=== PATIENT | male | born 1995 | race African-American/Black ===

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

== ENCOUNTER 2017-07-10 16:55 | Emergency (ER) | payer MEDICAID, OTHER ==
[~2017-07-10] VITALS: Ht 182.9 cm; Wt 81.6 kg
[~2017-07-10 16:55] MED LIST changes: +CYCLOBENZAPRINE10 MG ORAL; +IBUPROFEN600 MG ORAL
[2017-07-10 17:18] VITALS: BP 105/67
--- NOTE | 2017-07-10 17:27 | Emergency Room Report ---
History of Present Illness General Chief Complaint: Pain Source: Patient Present Illness HPI Pt. presents to the ED c/o dry cough, wheezing and chest congestion x 2 days. Denies fevers or chills. Reports hx of asthma and is a smoker. He is out of his inhaler. Denies sore throat, ear pain, high fevers, lethargy, neck pain/ stiffness, irritability, photophobia dehydration, N/V/D. Denies cardiac hx. Denies Cp, Palpitations, LOC, AMS, seizures, paresthesias, or changes in Hearing or vision, no Sudden severe MARK. Allergies: Coded Allergies: No Known Allergies (Unverified , 11/25/15) Patient History Past Medical History: see triage record Past Surgical History: none Pertinent Family History: none Reviewed Nursing Documentation: PMH: Agreed, PSxH: Agreed Nursing Documentation-PMH Past Medical History: No History, Except For Hx Asthma: Yes Review of Systems All Other Systems: negative except mentioned in HPI Physical Exam Vital Signs Date Time Temp Pulse Resp B/P (MAP) Pulse Ox O2 Delivery O2 Flow Rate FiO2 07/10/17 17:08 98.3 75 20 105/67 96 Room Air 98.2 Sp02 EP Interpretation: reviewed, normal General Appearance: no apparent distress, alert, GCS 15, non-toxic Head: normocephalic, atraumatic Eyes: bilateral eye normal inspection, bilateral eye PERRL ENT: hearing grossly normal, normal voice Neck: full range of motion Respiratory: chest non-tender, lungs clear, normal breath sounds, no respiratory distress, no accessory muscle use, no wheezing, speaking full sentences Cardiovascular #1: regular rate, rhythm Musculoskeletal: back normal, gait/station normal, normal range of motion, non- tender Neurologic: alert, oriented x3, responsive, motor strength/tone normal, sensory intact, speech normal, grossly normal Psychiatric: judgement/insight normal Skin: normal color, no rash, warm/dry, well hydrated Lymphatic: no adenopathy Medical Decision Making PA Attestation Dr. Gaytan is my supervising physician whom pt. management has been discussed with. Diagnostic Impression: Primary Impression: Bronchitis ER Course Pt. presents to the ED c/o dry cough, wheezing and chest congestion x 2 days. Denies fevers or chills. Reports hx of asthma and is a smoker. He is out of his inhaler. Denies sore throat, ear pain, high fevers, lethargy, neck pain/ stiffness, irritability, photophobia dehydration, N/V/D. Denies cardiac hx. Denies Cp, Palpitations, LOC, AMS, seizures, paresthesias, or changes in Hearing or vision, no Sudden severe MARK. Ddx considered but are not limited to URI, pneumonia, PE, strep pharyngitis, meningitis. Vital signs: Pt.is afebrile VS are WNL H&PE are most consistent with bronchitis- no evidence of bacterial infection at this time, no evidence of airway compromise or significant asthma exacerbation. ORDERS: none required at this time, the diagnosis is clinical ED INTERVENTIONS: None required at this time. DISCHARGE: At this time pt. is stable for d/c to home. Will provide printed patient care instructions, and any necessary prescriptions. Care plan and follow up instructions have been discussed with the patient prior to discharge. Last Vital Signs Date Time Temp Pulse Resp B/P (MAP) Pulse Ox O2 Delivery O2 Flow Rate FiO2 07/10/17 17:18 98.2 77 20 105/67 97 Room Air 98.2 Disposition: HOME, SELF-CARE Condition: Stable Scripts Albuterol Sulfate* (ALBUTEROL SULFATE MDI*) 8.5 Gm Hfa.aer.ad 2 PUFF INH Q4H, #1 INH 0 Refills Prov: Pooja Haywood 07/10/17 Guaifenesin (Guaifenesin) 1,200 Mg Tab.er.12h 1200 MG PO BID, #20 TAB Prov: Pooja Haywood 07/10/17 Codeine/Promethazine Hcl* (PROMETHAZINE-CODEINE SYRUP*) 118 Ml Syrup 5 ML ORAL Q6H Y for For Cough, #120 ML 0 Refills Prov: Pooja Haywood 07/10/17 Departure Forms: Return to Work Return to Work Date: Jul 13, 2017 Work Restrictions: None Return to Full Activity: Jul 13, 2017 Patient Instructions: Acute Bronchitis, [id number] Additional Instructions: Take medications as directed. Follow up with a Primary Care Provider in 3-5 days, even if your symptoms have resolved. --Please review list of primary care clinics, if you do not already have a primary care provider Return sooner to ED if new symptoms occur, or current symptoms become worse. Do not drink alcohol, drive, or operate heavy machinery while taking Cough Syrup as this may cause drowsiness. - Please note that this Emergency Department Report was dictated using [employer] blocking operator technology software, occasionally this can lead to erroneous entry secondary to interpretation by the dictation equipment. Pooja Haywood Jul 10, 2017 17:27
[2017-07-10] MEDS ORDERED: GUAIFENESIN1200 MG PO (17:28)
[2017-07-10] MEDS ORDERED: ALBUTEROL SULF8.5 GM INH (17:28)
[2017-07-10] MEDS ORDERED: PROMETHAZINE-C118 M1 ORAL (17:28)
[2017-07-10 17:38] VITALS: BP 105/67
== END 2017-07-10 17:38 | disposition home or self-care (01) ==
LOC: EMR 17:33
DX: J45.909 Unspecified asthma, uncomplicated (principal)
CPT/HCPCS: 99284

== ENCOUNTER 2018-12-23 08:52 | Emergency (ER) | payer MEDICAID ==
[~2018-12-23] VITALS: Ht 182.9 cm; Wt 82.6 kg
[~2018-12-23 08:52] MED LIST changes: +GUAIFENESIN1200 MG PO; +PROMETHAZINE-C118 M1 ORAL
[2018-12-23 09:09] VITALS: BP 110/70
--- NOTE | 2018-12-23 09:10 | Emergency Room Report ---
History of Present Illness General Chief Complaint: Upper Respiratory Illness Source: Patient Present Illness HPI The patient presents with 2 weeks of upper respiratory symptoms. Last week he had problems with wheezing and cough. Use of his inhalers helped this. This is somewhat improved at this time. He had a sore throat but this is improved. He feels somewhat chills at night but denies having fevers. He has a mildly productive cough with yellow and occasionally green phlegm without any blood. He denies chest pain. His mother told him he needed to be evaluated. He has been taking [id number] medication. This is helped somewhat. He does smoke THC. No palpitations, nausea, vomiting, diarrhea, dysuria, abdominal pain, joint pain , rashes, depression, anxiety, visual changes, headache. Allergies: Coded Allergies: No Known Allergies (Unverified , 11/25/15) Patient History Past Medical History: see triage record Social History: Reports: drug use - THC Social History Narrative Unemployed Reviewed Nursing Documentation: PMH: Agreed; PSxH: Agreed Nursing Documentation-PMH Past Medical History: No History, Except For Hx Asthma: Yes Review of Systems All Other Systems: negative except mentioned in HPI Physical Exam Vital Signs Date Time Temp Pulse Resp B/P (MAP) Pulse Ox O2 Delivery O2 Flow Rate FiO2 12/23/18 08:56 98.1 65 15 110/70 (83) 98 Room Air Sp02 EP Interpretation: reviewed, normal General Appearance: well appearing, no apparent distress, alert, GCS 15, non- toxic, thin Head: normocephalic Eyes: bilateral eye normal inspection, bilateral eye PERRL ENT: normal pharynx, TMs + canals normal, moist mucus membranes Neck: full range of motion, supple Respiratory: chest non-tender, lungs clear, normal breath sounds, no respiratory distress, no wheezing Cardiovascular #1: regular rate, rhythm Cardiovascular #2: 2+ radial (R) Gastrointestinal: normal inspection, scaphoid Genitourinary: no CVA tenderness Musculoskeletal: gait/station normal, normal range of motion Neurologic: alert, oriented x3, grossly normal Psychiatric: mood/affect normal Skin: normal color, no rash Medical Decision Making Diagnostic Impression: Primary Impression: Asthma exacerbation Qualified Codes: J45.21 - Mild intermittent asthma with (acute) exacerbation Additional Impression: URI (upper respiratory infection) Qualified Codes: J06.9 - Acute upper respiratory infection, unspecified ER Course Patient presents with 2 weeks of upper respiratory symptoms that seem to be improving. Differential includes exacerbation of asthma, viral upper respiratory infection, bronchospasm amongst others. There is no evidence of bacterial infection at this time. The patient would benefit from prednisone. Discussed treatment plan with patient and rationale for not using antibiotics at this time. Patient stable for outpatient observation and treatment. Last Vital Signs Date Time Temp Pulse Resp B/P (MAP) Pulse Ox O2 Delivery O2 Flow Rate FiO2 12/23/18 09:22 98.1 15 110/70 98 Room Air 12/23/18 09:09 65 Status: unchanged Disposition: HOME, SELF-CARE Condition: Stable Scripts Guaifenesin/Dextromethorphan (Robitussin Cough-Chest Dm Liq) 237 Ml Liquid 5 ML PO Q6HR, #90 ML Prov: Frank Nash MD 12/23/18 Prednisone* (PREDNISONE*) 20 Mg Tablet 40 MG ORAL DAILY, #10 TAB Prov: Frank Nash MD 12/23/18 Frank Nash MD Dec 23, 2018 09:10
--- NOTE | 2018-12-23 09:10 | NUR ---
ED Nurse Note: pt walked in c/o cough for 2 weeks ermd eval done awaiting nsg orders. NAD pt speaking in clear sentences will monitor.
[2018-12-23] MEDS ORDERED: PREDNISONE20 MG ORAL (09:12)
[2018-12-23] MEDS ORDERED: ROBITUSSIN COU237 M2 PO (09:12)
[2018-12-23 09:22] VITALS: BP 110/70
--- NOTE | 2018-12-23 09:29 | NUR ---
ED Nurse Note: Pt cleared by health care Provider for discharge. DC instructions/prescription was given and explained to pt and verbalized understanding of teachings. Pt medicated. All medical deviecs such as ID band removed. Pt is AAO x4, ambulatory and left with all personal belongings.
== END 2018-12-23 09:30 | disposition home or self-care (01) ==
LOC: EMR 09:11
DX: J45.901 Unspecified asthma with (acute) exacerbation (principal); J06.9 Acute upper respiratory infection, unspecified
CPT/HCPCS: 99282